=== PATIENT | male | born 1985 | race African-American/Black ===

== ENCOUNTER 2025-03-25 14:50 | Emergency (ER) | payer MEDICARE, MEDICAID ==
[~2025-03-25] VITALS: Ht 170.2 cm; Wt 70.0 kg
[2025-03-25 14:54] VITALS: O2SAT 96
[2025-03-25] MEDS: KETOROLAC 15MG/ML VIAL IV ONE (15:53)
[2025-03-25] MEDS: SODIUM CHLORIDE 0.9% 1,000 ML IV ONE (15:54)
[2025-03-25 15:58] LABS: BASOPHILS % 0.4 % (0.0-2.0); EOSINOPHILS % 0.9 % (0.0-5.0); HEMATOCRIT. 35.5 % (42.0-52.0); HEMOGLOBIN. 12.0 g/dL (14.0-18.0); LYMPHOCYTES % 45.9 % (20.0-50.0); MEAN PLATELET VOLUME 8.8 fl (7.4-10.4); MONOCYTES % 10.6 % (2.0-8.0); NEUTROPHILS % 42.2 % (40.0-76.0); PLATELET 124 x1000/uL (130-400); RED BLOOD CELL COUNT 3.01 mill/uL (4.7-6.1); RED CELL DISTRIBUTION WIDTH 15.5 % (11.6-14.6)
[2025-03-25 15:59] LABS: ADD RBC MORPHOLOGY YES
[2025-03-25 16:07] LABS: PLATELET ESTIMATE NORMAL
[2025-03-25 16:12] LABS: CREATININE 0.6 mg/dL (0.6-1.3); UREA NITROGEN BLOOD 7 mg/dL (9-23)
[2025-03-25 18:23] VITALS: BP 132/89; PULSE 87; RESP 18; TEMP 37.1; O2SAT 98
== END 2025-03-25 18:45 | disposition home or self-care (01) ==
LOC: ER 14:50
DX: R07.89 Other chest pain (principal); I10 Essential (primary) hypertension; G40.909 Epilepsy, unspecified, not intractable, without status epilepticus
CPT/HCPCS: 99285; 96374; 96361; 71045; 80048; 85025; 36415; 93005; J1885; J7030